=== PATIENT | male | born 1940 | race Caucasian/White ===

== ENCOUNTER 2017-03-09 10:15 | Emergency (ER) | payer OTHER ==
[~2017-03-09] VITALS: Ht 170.2 cm; Wt 107.0 kg
[2017-03-09 11:15] LABS: CHLORIDE 107 mEq/L (99-109); POTASSIUM 4.3 mEq/L (3.7-5.4); SODIUM 140 mEq/L (136-147)
[2017-03-09 11:17] LABS: GLUCOSE 146 mg/dL (70-99)
[2017-03-09 11:18] LABS: ANION GAP 15 MEQ/L (2-14)
[2017-03-09 11:21] LABS: GFR ESTIMATE (CALCULATED) 42 mL/min/
[2017-03-09 11:22] LABS: UREA NITROGEN (BUN) 19 mg/dL (9-23)
[2017-03-09] MEDS ORDERED: OMEPRAZOLE20 MG PO (11:32)
[2017-03-09 11:52] LABS: ADD MIUA? YES; BILIRUBIN NEGATIVE; BLOOD MODERATE; GLUCOSE (STRIP) NEGATIVE; KETONES NEGATIVE; LEUKOCYTES NEGATIVE; NITRITE NEGATIVE; PROTEIN (STRIP) 100; SPECIFIC GRAVITY 1.008 (1.000-1.030); UROBILINOGEN 0.2 MG/DL (0.2-1.0)
[2017-03-09 11:57] LABS: COLOR RED ((YELLOW))
[2017-03-09 12:02] LABS: BACTERIA RARE /HPF; EPITHELIAL CELLS NONE SEEN /HPF; MUCUS TRACE /LPF; RED BLOOD CELLS TNTC /HPF (0-5); UCUL ADDED? YES; WHITE BLOOD CELLS TNTC /HPF (0-5)
[2017-03-09 12:37] VITALS: BP 149/79
== END 2017-03-09 12:37 | disposition home or self-care (01) ==
LOC: EME 10:15
PROVIDERS: Emergency Medicine
DX: R33.9 Retention of urine, unspecified (principal)
CPT/HCPCS: 80048; 81003; 87086 GA; 99281; 99283

== ENCOUNTER 2017-03-10 13:09 | Observation (INO) | payer OTHER ==
[~2017-03-10] VITALS: Ht 182.9 cm; Wt 108.0 kg
[~2017-03-10 13:09] MED LIST: OMEPRAZOLE20 MG PO
[2017-03-10 13:48] LABS: ADD MIUA? YES; BILIRUBIN NEGATIVE; BLOOD LARGE; COLOR YELLOW ((YELLOW)); GLUCOSE (STRIP) NEGATIVE; KETONES NEGATIVE; LEUKOCYTES TRACE; NITRITE NEGATIVE; PROTEIN (STRIP) NEGATIVE; SPECIFIC GRAVITY 1.008 (1.000-1.030); UROBILINOGEN 0.2 MG/DL (0.2-1.0)
[2017-03-10 13:57] LABS: BACTERIA RARE /HPF; EPITHELIAL CELLS RARE /HPF; MUCUS TRACE /LPF; UCUL ADDED? NO
[2017-03-10 14:13] LABS: HEMATOCRIT 42.2 % (38.0-50.0); MCHC 34.8 G/DL (30.0-36.0); MCV 91.7 FL (86-99); MEAN PLAT.VOLUME 9.7 uM^3 (9.0-12.4); PLATELET COUNT 265 K/uL (156-360); RBC DIS.WIDTH-CV 13.7 % (11.8-14.6); RBC DIS.WIDTH-SD 46.4 % (39-53)
[2017-03-10 14:22] LABS: CHLORIDE 104 mEq/L (99-109); POTASSIUM 4.3 mEq/L (3.7-5.4); SODIUM 136 mEq/L (136-147)
[2017-03-10 14:25] LABS: GLUCOSE 160 mg/dL (70-99)
[2017-03-10 14:26] LABS: ANION GAP 13 MEQ/L (2-14)
[2017-03-10 14:27] LABS: TOTAL BILIRUBIN 1.4 mg/dL (0.0-1.0)
[2017-03-10 14:28] LABS: ALKALINE PHOSPHATASE 68 IU/L (3-129); GFR ESTIMATE (CALCULATED) 16 mL/min/
[2017-03-10 14:31] LABS: UREA NITROGEN (BUN) 39 mg/dL (9-23)
[2017-03-10 20:09] VITALS: BP 140/72
[2017-03-10 23:20] VITALS: BP 131/85
[2017-03-11 03:21] VITALS: BP 119/67
[2017-03-11 07:11] LABS: Estimated Average Glucose 128 mg/dL (70-123); HEMOGLOBIN A1c (GLYCOHEMOGLOB) 6.1 % HGB (Below 5.7)
[2017-03-11 07:28] LABS: ANION GAP 7 MEQ/L (2-14); CHLORIDE 110 MEQ/L (99-109); GFR ESTIMATE (CALCULATED) 57 mL/min/; SAMPLE HEMOLYSIS CHECK 0; SAMPLE ICTERIC CHECK 0; SAMPLE LIPEMIA CHECK 0; SODIUM 141 MEQ/L (136-147); UREA NITROGEN (BUN) 21 mg/dL (9-23)
[2017-03-11 07:35] LABS: GLUCOSE 91 mg/dL (70-99)
[2017-03-11 07:46] VITALS: BP 131/79
[2017-03-11 07:48] LABS: HEMATOCRIT 39.3 % (38.0-50.0); MCH 31.9 PG (29.0-34.0); MCHC 34.1 G/DL (30.0-36.0); MCV 93.6 FL (86-99); MEAN PLAT.VOLUME 9.9 uM^3 (9.0-12.4); PLATELET COUNT 214 K/uL (156-360); RBC DIS.WIDTH-CV 13.9 % (11.8-14.6); RBC DIS.WIDTH-SD 47.6 % (39-53)
[2017-03-11 08:26] LABS: WHITE BLOOD COUNT 10.4 K/uL (4.1-10.2)
[2017-03-11] MEDS ORDERED: FINASTERIDE5 MG PO (15:22)
[2017-03-11] MEDS ORDERED: TAMSULOSIN HCL0.4 MG PO (15:22)
[2017-03-11] MEDS ORDERED: CEFTIN500 MG PO (15:22)
== END 2017-03-11 16:08 | disposition home or self-care (01) ==
LOC: EME 13:09 → EDOF 16:06 → 5SOUTH 16:06
PROVIDERS: Internal Medicine; Nurse Practitioner Family
DX: N17.9 Acute kidney failure, unspecified (principal); N10 Acute pyelonephritis; N40.1 Benign prostatic hyperplasia with lower urinary tract symptoms; R33.9 Retention of urine, unspecified; K21.9 Gastro-esophageal reflux disease without esophagitis; N99.840 Postprocedural hematoma of a genitourinary system organ or structure following a genitourinary system procedure; Y84.6 Urinary catheterization as the cause of abnormal reaction of the patient, or of later complication, without mention of misadventure at the time of the procedure
CPT/HCPCS: 71010; 74176; 80048; 80053; 81003; 83036; 83605; 85027; 87040; 99281; 99285; G0378; J0696; J1956; J7030; J7050

== ENCOUNTER → 2017-04-17 | Outpatient (CLI) | payer OTHER, MEDICARE ==
[~2017-04-17] MED LIST changes: +CEFTIN500 MG PO; +FINASTERIDE5 MG PO; +TAMSULOSIN HCL0.4 MG PO
== END | disposition home or self-care (01) ==
LOC: CDC 11:26
DX: I45.9 Conduction disorder, unspecified (principal); N40.1 Benign prostatic hyperplasia with lower urinary tract symptoms; R33.8 Other retention of urine
CPT/HCPCS: 93000